=== PATIENT | female | born 1995 | race Caucasian/White ===

== ENCOUNTER 2017-12-15 12:47 | Emergency (ER) | payer BC, MEDICAID ==
[2017-12-15 13:58] VITALS: BMI 38.7
[2017-12-15 14:36] LABS: SQUAMOUS EPITHIAL < 1 /hpf (0-5); URINE BACTERIA RARE (<OCC); URINE BILIRUBIN NEGATIVE (NEGATIVE); URINE BLOOD NEGATIVE (NEGATIVE); URINE CLARITY SLIGHTY-CLOUDY (Clear); URINE COLOR YELLOW (YELLOW); URINE GLUCOSE (UA) >=500 mg/dL (Normal); URINE LEUKOCYTE ESTERASE NEG Leu/uL (Negative); URINE PROTEIN NEGATIVE (NEGATIVE); URINE UROBILINOGEN 0.2-1.0 mg/dL (0.2-1.0)
--- NOTE | 2017-12-15 18:31 | OBDCSUM ---
Datetime: 12/15/2017 13:43 Discharged to, Provider: Home Follow up at, Provider: Dr Daniele Shetty Instr Activity: Normal activity Disch Instr Diet: Regular Discharge Instructions, Provider: Routine instructions given Discharge Time: 12/15/2017 13:43 Follow up in weeks, Provider: as per appt Disch Referrals: None Contraception discussed, Prov: Yes Discharge Diagnosis Prov Other: false labor Datetime: 12/15/2017 13:13 Discharged to, Provider: Home Follow up at, Provider: MD Shetty Instr Activity: Normal activity Disch Instr Diet: Regular Discharge Time: 12/15/2017 13:14 Follow up in weeks, Provider: per appt
--- NOTE | 2017-12-15 18:32 | OBHP ---
Datetime: 12/15/2017 13:58 IP Adm Impression: , intrauterine ; No Active Labor IP Admit Plan: Observation/Evaluation; Discharge home Admit Comment, IP Provider: 22 y/o 28.6 wks, patient of Dr. Mccollum with H/O cerclage on presents with vaginal spotting. Patient noticed vaginal spotting while wiping after urination on 3 saperate occasions. Spotting was bright red to dark red. Patient also started having right sided giovanni k pain and 1 x NBNB vomiting yesterday. Patient denies any recent intercourse or trauma. Patient also reports 1 week H/O vaginal itching for which she uses Monistat cream without much improvement. movement +. Denies any LOF, contractions or abdominal pain. Denies any fever, chills, diarrhea. H/O: Cerclage at 20 week, Polyhydroamnios, Abnormal OGTT 1hr. POBHx: 1 SAB at 13 weeks PGynHx: None, Denies STIs or abnormal PAPs PMHx: None PSHx: None except cerclage Medications: PNV Allergies: None F/H: Grandfather-DM PE General: Patient lying comfortably in bed, No acurte distress Heart: RRR, S1S2 present Lungs: CTA B/L Abdomen: Gravid , NT SSE: No active vaginal bleeding SVE: Mild erythema FHT: As above TOCO: As above A/P: 22 y/o 28.6 wks, with H/O cerclage on 10/21/17 presents with vaginal spotting. - FHT and TOCO monitoring - FHT reactive - No active vaginal bleeding - TOCO: No contractions - Not in active labor - UA unremarkable except for Urin Glucose >500 - Labor precautions provided - Patient advised to use hypoallergenic clothings/soap to avoid irritation - Maintain hydration - Patient to F/U with Dr. Mccollum on 12/18/[address] Cortes: Patient evaluated and I agree with the above. FHR - Baseline A Provider: 150s-160s Membranes, Provider: Intact Comments, ACOG Physical Exam: General: Patient lying comfortably in bed, No acurte distress Heart: RRR, S1S2 present Lungs: CTA B/L Abdomen: Gravid , NT SSE: No active vaginal bleeding SVE: Mild erythema EGA AdmitDate IP: 26.3 Vital Signs Provider: Reviewed; Within Normal Limits IP Chief Complaint: Vaginal bleeding NICHD Variability Prov Fetus A: Moderate 6-25bpm NICHD Accel Fetus A IP Provider: [id number] FHR Category Provider Fetus A: Category I NICHD Decel Fetus A IP Provider: None
== END 2017-12-15 15:10 | disposition home or self-care (01) ==
LOC: H.EROB2 12:47
DX: O26.853 Spotting complicating pregnancy, third trimester (principal); Z3A.28 28 weeks gestation of pregnancy; O09.90 Supervision of high risk pregnancy, unspecified, unspecified trimester